=== PATIENT | female | born 1975 ===

== ENCOUNTER 2017-04-04 10:16 | Emergency (ER) | payer OTHER ==
[2017-04-04 10:53] VITALS: RESP 19
--- NOTE | 2017-04-04 10:59 | ED PDOC ---
HPI: General Adult Time Seen by Provider: 04/04/17 10:25 Chief Complaint (Nursing): Abdominal Pain History Per: Patient, Family (sister in law) Additional Complaint(s): Pt. states for the past 8 years she's had L sided lower back and LLQ abd pain radiating down the L leg which is worsened with movement. Pt. states pain is also associated with increased burping. Over the past week pain has worsened prompting ED visit today. She has been seen in [facility] for this same complaint las tmonth and was instructed to have blood work done and dx with dyspepsia. She was prescribed Ranitidine, Senna with good relief of constipation. Last BM was today and was normal. Denies fever, previous abdominal surgeries, trauma, dysuria, incontinence, vaginal bleeding. Past Medical History Reviewed: Historical Data, Nursing Documentation, Vital Signs Vital Signs: Last Vital Signs Temp Pulse 65 04/04/17 10:52 Resp 19 04/04/17 10:52 BP 129/80 04/04/17 10:52 Pulse Ox 100 04/04/17 10:52 - Family History Family History: States: No Known Family Hx - Home Medications Home Medications: Ambulatory Orders Medication Instructions Recorded Cyclobenzaprine [Cyclobenzaprine 10 mg PO Q8 PRN #30 tab 04/04/17 HCl] Naproxen [Naprosyn] 500 mg PO BID PRN #30 tab 04/04/17 - Allergies Allergies/Adverse Reactions: Allergies Allergy/AdvReac Type Severity Reaction Status Date / Time No Known Allergies Allergy Verified 04/04/17 10:35 Review of Systems ROS Statement: Except As Marked, All Systems Reviewed And Found Negative Gastrointestinal: Positive for: Abdominal Pain Genitourinary Female: Positive for: Pelvic Pain Physical Exam - Physical Exam Appears: Positive for: Well, Non-toxic, No Acute Distress Skin: Positive for: Normal Color, Warm. Negative for: Rash Cardiovascular/Chest: Positive for: Regular Rate, Rhythm Respiratory: Positive for: CNT, Normal Breath Sounds Pulses-Dorsalis Pedis (L): 2+ Pulses-Dorsalis Pedis (R): 2+ Gastrointestinal/Abdominal: Positive for: Normal Exam, Bowel Sounds, Soft. Negative for: Tenderness (to deep palpation) Back: Positive for: Normal Inspection, Muscle Spasm (minimal L paralumbar tenderness), Other (straight leg raise negative b/l). Negative for: L CVA Tenderness, R CVA Tenderness, Vertebral Tenderness Extremity: Positive for: Normal ROM. Negative for: Calf Tenderness (b/l) Neurologic/Psych: Positive for: Alert, Oriented - Laboratory Results Result Diagrams: 04/04/17 11:00 04/04/17 11:00 Urine POC: Negative Urine dip results: Positive for: Blood (trace). Negative for: Leukocyte Esterase, Nitrate, Ketones, Glucose, Bilirubin, Protein - CT Scan/US Pelvic US Other Rad Studies (CT/US): Read By Radiologist (negative) - Progress ED Course And Treament: Labs ordered. Pelvic US ordered. Toradol 15mg IV given. Disposition - Clinical Impression Clinical Impression: Sciatica - Patient ED Disposition Is Patient to be Admitted: No - Disposition Referrals: [facility] [Outside] Disposition: Routine/Home Disposition Time: 15:27 Condition: IMPROVED Prescriptions: Cyclobenzaprine [Cyclobenzaprine HCl] 10 mg PO Q8 PRN #30 tab PRN Reason: Muscle Spasm Naproxen [Naprosyn] 500 mg PO BID PRN #30 tab PRN Reason: Pain Instructions: Sciatica (ED) Forms: [facility] (Uzbek) Print Language: CONGOLESE
[2017-04-04 11:17] LABS: ALB/GLOB RATIO 1.2 (1.0-2.1); ALBUMIN 4.1 g/dL (3.5-5.0); ALT/SGPT 52 U/L (9-52); AST/SGOT 42 U/L (14-36); BLOOD UREA NITROGEN 13 mg/dl (7-17); CALCIUM 8.4 mg/dL (8.4-10.2); GFR AFRICAN-AMERICAN > 60; GFR NON-AFRICAN AMERICAN > 60
[2017-04-04 11:23] LABS: BASO % 0.6 % (0.0-2.0); EOS # 0.1 K/uL (0.0-0.7); EOS % 1.6 % (0.0-4.0); HEMOGLOBIN 12.6 g/dL (12.0-16.0); LYMPH # 1.6 K/uL (1.0-4.3); LYMPH % 34.4 % (20.0-40.0); MEAN CELL VOLUME 77.8 fl (81.0-99.0); MEAN CORPUSCULAR HGB CONC 33.4 g/dL (33.0-37.0); MEAN PLATELET VOLUME 7.6 fl (7.2-11.7); MONO # 0.3 K/uL (0.0-0.8); MONO % 6.8 % (0.0-10.0); NEUT # 2.7 K/uL (1.8-7.0); NEUT % 56.6 % (50.0-75.0); NRBC % 0.1 % (0.0-0.0); RBC 4.86 Mil/uL (3.80-5.20); RED CELL DISTRIBUTION WIDTH 15.3 % (11.5-14.5); WHITE BLOOD COUNT 4.8 K/uL (4.8-10.8)
--- NOTE | 2017-04-04 15:19 | US ---
PROCEDURE: HISTORY: L pelvic pain COMPARISON: TECHNIQUE: FINDINGS: Uterus measures 10.5 x 4.5 x 6.0 centimeters. The endometrium measures 14 millimeters. The right ovary measures 3.0 x 2.8 centimeters. The left arm measures 2.7 x 2.4 centimeters. There is no free fluid the pelvis. IMPRESSION: Unremarkable pelvic ultrasound.
[2017-04-04 15:46] VITALS: BP 126/78; PULSE 78; TEMP 97.6; O2SAT 98
== END 2017-04-04 15:46 | disposition home or self-care (01) ==
LOC: H.ER 10:16
DX: M54.30 Sciatica, unspecified side (principal)